=== PATIENT | female | born 2000 | race African-American/Black ===

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

== ENCOUNTER 2018-10-18 18:24 | Emergency (ER) | payer MEDICAID, OTHER ==
[~2018-10-18] VITALS: Ht 167.6 cm; Wt 89.3 kg
[2018-10-18] MEDS ORDERED: ACETAMINOPHEN 325MG TABLET PO STA (18:59)
[2018-10-18] MEDS ORDERED: SODIUM CHLORIDE 0.9% 1,000 ML IV ONE (18:59)
[2018-10-18 19:51] LABS: CLARITY URINE CLEAR (CLEAR); COLOR URINE YELLOW (YELLOW); KETONES URINE NEGATIVE (NEGATIVE); LEUKOCYTE ESTERASE URINE 1+ (NEGATIVE); NITRITE URINE NEGATIVE (NEGATIVE); OCCULT BLOOD URINE 1+ (NEGATIVE); PH URINE >=9.0 (4.5-8.0); PROTEIN URINE TRACE (NEGATIVE); UROBILINOGEN URINE 0.2 E.U./dL (0.2-1.0)
[2018-10-18 19:52] LABS: BASOPHILS % 0.3 % (0.0-2.0); EOSINOPHILS % 1.3 % (0.0-5.0); HEMOGLOBIN. 12.5 g/dL (12.0-16.0); LYMPHOCYTES % 17.9 % (20.0-50.0); MEAN CORPUSCULAR HEMOGLOBIN 29.6 pg (28.0-32.0); MEAN CORPUSCULAR VOLUME 87.7 fL (81.0-99.0); MEAN PLATELET VOLUME 9.2 fl (7.4-10.4); MONOCYTES % 7.9 % (2.0-8.0); NEUTROPHILS % 72.6 % (40.0-76.0); PLATELET 259 x1000/uL (130-400); RED BLOOD CELL COUNT 4.22 mill/uL (4.2-5.4); RED CELL DISTRIBUTION WIDTH 14.3 % (11.6-14.6)
[2018-10-18 20:00] LABS: CHLORIDE 104 mEq/L (98-107)
[2018-10-18] MEDS ORDERED: CEFTRIAXONE 1 G PREMIX 50 ML IV ONE (20:30)
[2018-10-18 23:15] VITALS: BP 116/50
[2018-10-18] MEDS ORDERED: IBUPROFEN 600MG TABLET PO ONE (23:15)
== END 2018-10-18 23:45 | disposition home or self-care (01) ==
LOC: ER 19:19
DX: N39.0 Urinary tract infection, site not specified (principal); F12.10 Cannabis abuse, uncomplicated
CPT/HCPCS: 36415; 71045; 76770; 76830; 76856; 80053; 81003; 81025; 85025; 96365; 99284; J0696; J7030

== ENCOUNTER 2019-04-17 22:36 | Emergency (ER) | payer MEDICAID ==
[~2019-04-17] VITALS: Ht 170.2 cm; Wt 85.0 kg
[2019-04-17] MEDS ORDERED: ACETAMINOPHEN 500MG TABLET PO ONE (23:15)
[2019-04-17] MEDS ORDERED: DEXAMETHASONE 10 MG/ML VIAL IM ONE (23:15)
[2019-04-17] MEDS ORDERED: AZITHROMYCIN 500 MG TABLET PO ONE (23:30)
[2019-04-18 00:36] VITALS: BP 114/76
== END 2019-04-18 00:37 | disposition home or self-care (01) ==
LOC: ER 22:36
DX: J02.0 Streptococcal pharyngitis (principal); R50.9 Fever, unspecified; R05 Cough; F12.10 Cannabis abuse, uncomplicated
CPT/HCPCS: 96372; 99283; J1100

== ENCOUNTER 2020-05-27 06:43 | Emergency (ER) | payer MEDICAID ==
[~2020-05-27] VITALS: Ht 170.2 cm; Wt 79.0 kg
[2020-05-27 06:53] VITALS: BP 117/56
== END 2020-05-27 09:07 | disposition home or self-care (01) ==
LOC: ER 06:43
DX: M26.603 Bilateral temporomandibular joint disorder, unspecified (principal)
CPT/HCPCS: 70486; 81025; 99284